=== PATIENT | male | born 1960 | race Caucasian/White ===

== ENCOUNTER 2020-04-13 11:01 | Outpatient (CLI) | payer MEDICARE, MEDICAID, SELFPAY ==
--- NOTE | ~2020-04-13 | XR_ITS ---
EXAMINATION:XR_CERV2-3V_CR, XR lumbar spine 2-3V, XR thoracic spine 3V DATE: 04/13/2020 11:41 INDICATION: Dorsalgia with neck, mid and lower back pain. TECHNIQUE: 1. AP, lateral and odontoid views of the cervical spine were obtained. 2. AP, lateral and lateral swimmers views of the thoracic spine were obtained. 3. AP, lateral and cone-down lateral lumbosacral views of the lumbar spine were obtained. COMPARISON: None FINDINGS: Cervical spine: Alignment is normal. Dens is intact. Vertebral body heights are normal. Disc spaces are normal. No fr acture identified. Mild to moderate cervical facet osteoarthritis. Prevertebral soft tissues are norm al. Thoracic spine: Alignment is normal. Minimal lower thoracic levocurvature with slight right-sided vertebral body heig ht loss at T8 and T9. Remaining vertebral body heights are normal. Multilevel mild disc height loss w ith small endplate osteophytes primarily in the upper to mid thoracic spine. No fracture identified. Paravertebral soft tissues are unremarkable. Heart size is normal. Calcified nodule at the right lung base consistent with old granulomatous disease. Lumbar spine: Mild lumbar levocurvature. Sacralized L5 segment. 17 mm anterolisthesis L4 on L5 with band of lucency projecting across the pars interarticularis consistent with spondylolysis. 5 mm anterolisthesis L3 o n L4. Vertebral body heights are normal. Mild disc height loss at L3-L4 and severe disc height loss a t L4-L5. Moderate to severe lower lumbar facet osteoarthritis. Mild bilateral sacral joints. IMPRESSION: 1. L4 spondylolysis with grade 2 anterolisthesis on the sacralized L5 segment. 2. Mild cervical and thoracic spondylosis and moderate to severe spondylosis in the lower lumbar spin e. Reviewed, dictated and finalized at location B. IMPRESSION: 1. L4 spondylolysis with grade 2 anterolisthesis on the sacralized L5 segment. 2. Mild cervical and thoracic spondylosis and moderate to severe spondylosis in the lower lumbar spine. IMPRESSION: 1. L4 spondylolysis with grade 2 anterolisthesis on the sacralized L5 segment. 2. Mild cervical and thoracic spondylosis and moderate to severe spondylosis in the lower lumbar spine.
[2020-04-13 11:36] LABS: Basophils Absolute Auto 0.1 K/mm3 (0.0-0.1); Basophils Percent Auto 0.6 % (0.2-1.2); Eosinophils Absolute Auto 0.2 K/mm3 (0-0.3); Eosinophils Percent Auto 2.5 % (0-4.4); Hematocrit 47.4 % (42.0-52.0); Hemoglobin 16.2 g/dL (14.0-18.0); Immature Granulocyte Absolute 0.03 K/mm3 (0.00-0.031); Immature Granulocyte Percent A 0.3 % (0-0.5); Lymphocytes Percent Auto 20.1 % (18.3-44.2); Mean Corpuscular HGB Conc 34.2 g/dl (32-36); Mean Corpuscular Hemoglobin 31.5 pg (26-34); Mean Corpuscular Volume 92.2 fl (80-100); Mean Platelet Volume 10.1 fl (7.4-10.4); Monocytes Absolute Auto 0.7 K/mm3 (0.1-0.6); Monocytes Percent Auto 6.9 % (2.6-8.5); Neutrophils Absolute Auto 6.6 K/mm3 (1.3-6.7); Neutrophils Percent Auto 69.6 % (45.5-73.1); Platelet Count Result 219 k/mm3 (150-375); Red Blood Count 5.14 M/mm3 (4.6-6.20); Red Cell Distribution Width 13.6 % (11.5-14.5); White Blood Count 9.5 K/mm3 (4.5-10.0)
[2020-04-13 12:15] LABS: Rheumatoid Factor < 8.6 IU/ML (<12)
[2020-04-13 12:16] LABS: Alanine Aminotransferase 40 U/L (4-50); Albumin Level 4.6 g/dL (3.5-5.1); Alkaline Phosphatase 54 U/L (38-126); Anion Gap 7 mmol/L (8-16); Aspartate Amino Transferase 36 U/L (17-59); Bilirubin,Total 0.8 mg/dL (0.2-1.3); Blood Urea Nitrogen 14 mg/dL (9-20); Calcium 9.7 mg/dL (8.4-10.2); Carbon Dioxide 30 mmol/L (22-30); Chloride 102 mmol/L (98-107); Estimated Glomerular Filt Rate > 60; Glucose 106 mg/dL (75-110); Potassium 4.4 mmol/L (3.4-5.0); Sodium 139 mmol/L (137-145)
[2020-04-13 13:14] LABS: Erythrocyte Sedimentation Rate 2 mm/hr (0-20)
[2020-04-17 12:22] LABS: ANA Cascade Screen Negative (Negative)
== END 2020-04-13 11:02 | disposition home or self-care (01) ==
PROVIDERS: PCP Internal Medicine; Visit Provider Nurse Practitioner
DX: M35.3 Polymyalgia rheumatica (principal); M47.896 Other spondylosis, lumbar region; M47.894 Other spondylosis, thoracic region; M47.892 Other spondylosis, cervical region
CPT/HCPCS: 36415; 72040; 72072; 72100; 80053; 82607; 84443; 85025; 85652; 86038; 86430

== ENCOUNTER 2020-05-03 14:41 | Emergency (ER) | payer MEDICARE, MEDICAID, SELFPAY ==
--- NOTE | ~2020-05-03 | CT_ITS ---
EXAMINATION: CT abdomen pelvis w con DATE: 05/03/2020 16:01 INDICATION: Abdominal pain and nausea for 30 days TECHNIQUE: Computed tomography (CT) of the abdomen and pelvis was performed with 100 cc Omnipaque 350 intravenous contrast. Automated exposure control and iterative reconstruction technique were employe d. Exam dose: 510.18 mGy-cm total exam DLP. COMPARISON: None. FINDINGS: Right lower lobe calcified pulmonary granuloma. Minimal dependent right lower lobe atelecta sis. The lung bases are otherwise clear. Normal heart size. No pericardial or pleural effusion. 6 mm left hepatic cyst. The liver is otherwise unremarkable. The gallbladder is present and appears u nremarkable by CT examination. No gallbladder wall thickening or pericholecystic fluid or stranding. No bile duct or pancreatic duct dilatation is detected. No pancreatic mass lesion or calcification. N ormal splenic size. Normal morphology of the adrenal glands. Approximately 6 mm right renal cyst. No other renal space occupying mass lesion is detected. No urina ry tract calculus or hydroureteronephrosis. There is atherosclerotic calcification of the abdominal aorta and superior mesenteric and iliac arter ies. No abdominal aortic aneurysm. No intraperitoneal or retroperitoneal or pelvic mass lesion or jose antonio nopathy or ascites is evident. There is nonspecific thickening of the wall of the gastric fundus and body. There is an air-fluid lev el of the duodenal bulb and fluid distention of the duodenum. Gastritis and duodenitis are not exclud ed. No bowel obstruction, bowel wall thickening, pneumatosis or intraperitoneal free air is noted otherwi se. Posterior inferior urinary bladder diverticulum. There is mild diffuse thickening of the urinary blad sarahi wall. There is moderate prostate enlargement and minimal calcification. Diffuse osteopenia. Grade 1 anterolisthesis at L4-5 due to degenerative change at the apophyseal joints Bilateral L5 pars interarticularis defects with associated grade 2 anterolisthesis at L5-S1. Severe degenerative disc disease at L5-S1. Bilateral hip osteoarthritis. IMPRESSION: 6 mm left hepatic and 6 mm right renal cysts Nonspecific gastric fundal and body wall thickening and fluid distention and air-fluid level or duode num. Gastritis and duodenitis should be considered. No bowel obstruction Reviewed, dictated and finalized at Location [facility]. Reviewed, dictated and finalized at location B. BRAIST IMPRESSION: 6 mm left hepatic and 6 mm right renal cysts Nonspecific gastric fundal and body wall thickening and fluid distention and ai r-fluid level or duodenum. Gastritis and duodenitis should be considered. No bowel obstruction
[2020-05-03 14:45] VITALS: BP 121/93; PULSE 66; RESP 18; TEMP 36.7; O2SAT 98
--- NOTE | 2020-05-03 15:24 | ED.GENADULT ---
HPI - General Adult General Chief complaint: Nausea/Vomiting/Diarrhea Stated complaint: NAUSEA [id number] Time Seen by Provider: 05/03/20 15:04 Source: RN notes reviewed History of Present Illness HPI narrative: Patient presents to emergency department from home for abdominal pain. Patient states for the past 1 month has been having abdominal pain in the upper abdomen is been associated with nausea. States that symptoms progressively getting worse and are worse when he eats. He denies having any actual emesis or diarrhea he denies any fevers or chills chest pain shortness of breath or any other symptoms Related Data Home Medications Medication Instructions Recorded Confirmed gabapentin 300 mg capsule 300 mg PO TID 04/13/20 04/13/20 Allergies Allergy/AdvReac Type Severity Reaction Status Date / Time No Known Allergies Allergy Unverified 05/03/20 15:21 Review of Systems Review of Systems: Narrative: Gen.: Denies fevers or chills ENT: Denies congestion Respiratory: Denies shortness of breath or cough CV: Denies chest pain or palpitations GI: See HPI denies burning, urgency, frequency or hematuria Musculoskeletal: Denies back pain or muscle pain Neuro: Denies numbness, tingling, weakness or focal weakness Skin: Denies rash Except as documented, all other systems reviewed and negative PMFSH Past Medical History Medical History (Updated 05/03/20 @ 17:13 by Dexter Nicole DO) Hypercholesterolemia Surgical History Surgical History (Updated 12/02/19 @ 08:18 by Heike Solis CMA) H/O hand surgery Retention: 12/2015 Flap: 1983 H/O knee surgery Laproscopic: 12/2008 H/O rotator cuff surgery Right: 07/2015 Left: 2000 History of knee replacement procedure of right knee 09/2006 Family History Family History (Updated 12/02/19 @ 08:27 by Heike Solis CMA) Mother Acute myocardial infarction Father Acute myocardial infarction Diabetes mellitus Sibling Acute myocardial infarction Social History Social History Smoking status: Current every day smoker Tobacco type: cigars Alcohol intake: never Substance use: current Substance use type: marijuana Gender identity (if verbalized by the patient): Male Exam Narrative: Exam Narrative: APPEARANCE: No acute distress, nontoxic, resting in bed HEENT: Normocephalic, atraumatic, OMM RESPIRATORY: No respiratory distress, clear to auscultation bilaterally with no rhonchi wheezing or rales CARDIOVASCULAR: RRR s murmur ABDOMINAL: Soft, nondistended, tender palpation epigastric and right upper quadrant left upper quadrant no tenderness in right lower quadrant left lower quadrant no rebound or guarding MUSCULOSKELETAl: Moves all extremities. No clubbing, cyanosis or edema. NEURO: Awake and alert. Following commands, speech normal, no focal deficits SKIN:: Warm, dry. Normal Color PSYCHIATRIC: Normal affect/mood Course Course Emergency Course: Called and discussed with Dr. Whitten presentation and work-up this time recommends patient start on Protonix and will follow as an outpatient Patient states that they are feeling much better at this time. States abdominal pain has resolved. Repeat abdominal exam shows the patient's abdomen to be soft and nontender. Discussed with patient results of workup and diagnosis. Discussed need for follow-up with primary care physician, reasons to return to the emergency department in proper use of medication. Patient understands and agrees to current treatment plan Vital Signs Vital signs: Vital Signs Temperature 98.1 F 05/03/20 14:45 Pulse Rate 66 05/03/20 14:45 Respiratory Rate 18 05/03/20 14:45 Blood Pressure 121/93 H 05/03/20 14:45 Pulse Oximetry 98 05/03/20 14:45 Temperature 98.1 F 05/03/20 14:45 Pulse Rate 66 05/03/20 14:45 Respiratory Rate 18 05/03/20 14:45 Blood Pressure 121/93 H 05/03/20 14:45 Pulse Oximetry 98 05/03
[2020-05-03 15:26] LABS: Basophils Absolute Auto 0.1 K/mm3 (0.0-0.1); Basophils Percent Auto 0.6 % (0.2-1.2); Eosinophils Absolute Auto 0.2 K/mm3 (0-0.3); Eosinophils Percent Auto 1.7 % (0-4.4); Hematocrit 47.1 % (42.0-52.0); Hemoglobin 16.1 g/dL (14.0-18.0); Immature Granulocyte Absolute 0.04 K/mm3 (0.00-0.031); Immature Granulocyte Percent A 0.4 % (0-0.5); Lymphocytes Absolute Auto 2.46 K/mm3 (0.9-3.2); Lymphocytes Percent Auto 25.2 % (18.3-44.2); Mean Corpuscular HGB Conc 34.2 g/dl (32-36); Mean Corpuscular Hemoglobin 31.8 pg (26-34); Mean Corpuscular Volume 93.1 fl (80-100); Mean Platelet Volume 10.4 fl (7.4-10.4); Monocytes Absolute Auto 0.8 K/mm3 (0.1-0.6); Neutrophils Absolute Auto 6.2 K/mm3 (1.3-6.7); Neutrophils Percent Auto 64.1 % (45.5-73.1); Platelet Count Result 219 k/mm3 (150-375); Red Blood Count 5.06 M/mm3 (4.6-6.20); Red Cell Distribution Width 13.8 % (11.5-14.5); White Blood Count 9.8 K/mm3 (4.5-10.0)
[2020-05-03] MEDS: SODIUM CHLORIDE 0.9% IV 1,000 ML 999 ML IV CONT (15:33)
[2020-05-03] MEDS: ONDANSETRON INJ 4 MG/2 ML VIAL IV PUSH (15:36)
[2020-05-03 15:40] LABS: Alanine Aminotransferase 44 U/L (4-50); Albumin Level 4.7 g/dL (3.5-5.1); Alkaline Phosphatase 56 U/L (38-126); Anion Gap 6 mmol/L (8-16); Aspartate Amino Transferase 36 U/L (17-59); Bilirubin,Total 0.6 mg/dL (0.2-1.3); Blood Urea Nitrogen 16 mg/dL (9-20); Calcium 9.7 mg/dL (8.4-10.2); Carbon Dioxide 31 mmol/L (22-30); Chloride 100 mmol/L (98-107); Estimated CRCL calculation 111 ml/min; Estimated Glomerular Filt Rate > 60; Glucose 86 mg/dL (75-110); Lipase 87 U/L (23-300); Potassium 4.3 mmol/L (3.4-5.0); Sodium 137 mmol/L (137-145)
[2020-05-03 16:03] LABS: Add Urine Microscopic? YES; Appearance Urine Clear (Clear); Bilirubin Urine Negative (Negative); Blood Urine 1+ (Negative); Color Urine Colorless (Yellow); Glucose Urine UA Negative (Negative); Ketones Urine Negative (Negative); Leukocyte Esterase Ur Negative LEU/UL (Negative); Nitrate Urine Negative (Negative); Protein Urine Negative (Negative); RBC Urine 0-2 /hpf (0-2); Urobilinogen Urine Negative mg/dL (<2.0)
[2020-05-03 16:07] LABS: Specific Grav Ur 1.004 (1.001-1.035)
[2020-05-03] MEDS: PANTOPRAZOLE SODIUM IV 40 MG VIAL IV PUSH (17:11)
== END 2020-05-03 18:14 | disposition home or self-care (01) ==
PROVIDERS: Emergency Medicine; Emergency Provider Emergency Medicine; PCP Internal Medicine
DX: K29.70 Gastritis, unspecified, without bleeding (principal); E78.00 Pure hypercholesterolemia, unspecified; Z96.641 Presence of right artificial hip joint; F17.290 Nicotine dependence, other tobacco product, uncomplicated; K76.89 Other specified diseases of liver; N28.1 Cyst of kidney, acquired
CPT/HCPCS: 36415; 74177; 80053; 81001; 83690; 85025; 96365; 96366; 96375; 99284; A9270; C9113; J0131; J2405; J7030; Q9967

== ENCOUNTER 2020-10-27 11:37 | Emergency (ER) | payer MEDICARE, MEDICAID, SELFPAY ==
--- NOTE | ~2020-10-27 | XR_ITS ---
EXAMINATION: XR finger 4th LT min 2V DATE: 10/27/2020 12:13 INDICATION: Left hand fourth digit injury. TECHNIQUE: 4 views of left hand fourth digit were obtained. COMPARISON: None. FINDINGS: There is a nondisplaced stellate fracture of tuft of fourth distal phalanx. There is mild o steoarthritis of fourth metacarpophalangeal joint and distal interphalangeal joint. There is bandage material around the fourth digit. IMPRESSION: 1. Nondisplaced stellate fracture of tuft of fourth distal phalanx. Reviewed, dictated and finalized at location B.
[2020-10-27 11:39] VITALS: BP 129/97; PULSE 87; RESP 20; TEMP 36.8; O2SAT 99
[2020-10-27] MEDS: oxyCODONE/ACETAMINOPHEN (*CRX) 5-325 MG TABLET 1 TABLET (13:55)
[2020-10-27 15:11] VITALS: BP 142/84; PULSE 84; RESP 17; O2SAT 99
--- NOTE | 2020-10-27 21:19 | ED.WOUNDLAC ---
HPI - Wound/Laceration General Chief Complaint: Wound/Laceration Stated Complaint: finger injury Time Seen by Provider: 10/27/20 13:04 Source: patient Mode of arrival: ambulatory Limitations: no limitations History of Present Illness HPI narrative: Patient is a 60 year old male who presents with injury to left ring finger. He reports he was using log splitter and finger became caught between two logs. Patient denies other injuries. Patient denies taking otc medications prior to arrival. Patient reports tetanus is up to date at this time. Related Data Allergies Allergy/AdvReac Type Severity Reaction Status Date / Time No Known Allergies Allergy Unverified 05/10/20 11:08 Review of Systems Review of Systems: Narrative: CONSTITUTIONAL: Denies fever, chills, or sweats. EYES: Denies visual changes, redness, or discharge. ENT: Denies rhinorrhea, congestion, sore throat, or otalgia. CARDIOVASCULAR: Denies chest pain, palpitations, or edema. RESPIRATORY: Denies cough or dyspnea. GASTROINTESTINAL: Denies abdominal pain, nausea, vomiting, or diarrhea. GENITOURINARY: Denies dysuria or hematuria. SKIN: Reports injury to left ring finger MUSCULOSKELETAL: Denies back pain, joint pain, or myalgia. NEUROLOGIC: Denies headache, numbness, dizziness, or weakness. PSYCHIATRIC: Denies anxiety or depression. [facility] Past Medical History Medical History Abnormal CT scan Colon cancer screening Hypercholesterolemia Nausea Surgical History Surgical History H/O hand surgery Retention: 12/2015 Flap: 1983 H/O knee surgery Laproscopic: 12/2008 H/O rotator cuff surgery Right: 07/2015 Left: 2000 History of knee replacement procedure of right knee 09/2006 Family History Family History Mother Acute myocardial infarction Father Acute myocardial infarction Diabetes mellitus Sibling Acute myocardial infarction Social History Social History Smoking status: Current every day smoker Tobacco type: pipe and cigars Second hand tobacco smoke exposure: No Alcohol intake: never Substance use: current Substance use type: marijuana Gender identity (if verbalized by the patient): Male Comments At the time of signature, I have reviewed and agree with nursing past medical, surgical, social, and family history unless otherwise noted. Please see nursing chart for further information. There is no relevant family history pertinent to the presenting complaint. Exam Narrative: Exam Narrative: GENERAL: Well-appearing, well-nourished, and in no acute distress. HEAD: Normocephalic, atraumatic. EYES: EOMI. No redness or drainage. ENT: Mucous membranes pink and moist. CHEST: No respiratory distress. HEART: Regular rate and rhythm. EXTREMITIES: Normal range of motion. SKIN: Avulsion of fingernail of left ring finger, distal sensation intact. NEURO: No focal deficits. Alert and oriented x3. Gait steady. PSYCH: Normal affect. No signs of depression or anxiety. Course Course Emergency Course: Consultation to Dr. Nick who reports that he will see patient in his office at this time for repair. Block of finger completed for pain management. Dressing applied. Patient directed to Dr. Nick's office at this time. Vital Signs Vital signs: Vital Signs Temperature 36.8 C 10/27/20 11:39 Pulse Rate 87 10/27/20 11:39 Respiratory Rate 20 10/27/20 11:39 Blood Pressure 129/97 H 10/27/20 11:39 Pulse Oximetry 99 10/27/20 11:39 Temperature 36.8 C 10/27/20 11:39 Pulse Rate 84 10/27/20 15:11 Respiratory Rate 17 10/27/20 15:11 Blood Pressure 142/84 H 10/27/20 15:11 Pulse Oximetry 99 10/27/20 15:11 Reviewed. Patient has been instructed to follow-up with his PCP regarding his blood pressure.
== END 2020-10-27 15:12 | disposition home or self-care (01) ==
PROVIDERS: Emergency Provider Nurse Practitioner; PCP Internal Medicine
DX: S62.665A Nondisplaced fracture of distal phalanx of left ring finger, initial encounter for closed fracture (principal); S61.305A Unspecified open wound of left ring finger with damage to nail, initial encounter; E78.00 Pure hypercholesterolemia, unspecified; Z96.651 Presence of right artificial knee joint; F17.290 Nicotine dependence, other tobacco product, uncomplicated; R03.0 Elevated blood-pressure reading, without diagnosis of hypertension; W23.1XXA Caught, crushed, jammed, or pinched between stationary objects, initial encounter
CPT/HCPCS: 73140; 99283; A9270

== ENCOUNTER 2021-03-19 07:16 | Outpatient (CLI) | payer MEDICARE, MEDICAID, SELFPAY ==
--- NOTE | ~2021-03-19 | CT_ITS ---
EXAMINATION: CT lung screening EXAM DATE: 03/19/2021 07:34 INDICATION: Z87.891 - Personal history of nicotine dependence. TECHNIQUE: Spiral low dose CT of the chest without contrast. Axial, coronal and sagittal images were reviewed. The dose-length product (DLP) for this examination was 120.87 mGy-cm. The exposure was t ailored according to patient size (auto mA exposure control), and iterative reconstruction (ASIR) was used as additional dose reduction technique. There is no prior study for comparison. FINDINGS: Scattered calcified granulomata. There is 3 mm noncalcified right upper lobe nodule on axi al image 69. Mild emphysema and moderate hyperinflation. Tracheobronchial tree is patent. There is no mediastinal, hilar or axillary lymphadenopathy. There are no pleural or pericardial effusions. There is no pneumothorax. Heart normal in size. There is moderate coronary arterial calcificati on, arterial sclerosis. Upper abdomen is unremarkable. There is mild thoracic spondylosis without o steoblastic or osteolytic lesions identified. There is left-sided rotator cuff repair anchor. IMPRESSION: Lung-RADS category 2, benign appearance or behavior (<1% chance of malignancy); recommend continued LDCT screening in 1 year. > Reviewed, dictated and finalized at location A.
== END 2021-03-19 07:17 | disposition home or self-care (01) ==
PROVIDERS: PCP Internal Medicine; Visit Provider Internal Medicine
DX: Z87.891 Personal history of nicotine dependence (principal)
CPT/HCPCS: 71271

== ENCOUNTER 2021-05-24 10:40 | Outpatient (CLI) | payer MEDICARE, MEDICAID, SELFPAY ==
--- NOTE | 2021-05-24 10:55 | ECG_ITS ---
Measurements Intervals [place] Rate: 57 P: 29 ME: 176 QRS: 60 QRSD: 108 T: 46 QT: 406 QTc: 396 Interpretive Statements SINUS BRADYCARDIA WITH SINUS ARRHYTHMIA BASELINE ARTIFACT- V4 BORDERLINE ECG Electronically Signed On 05-24-2021 16:39:12 DRY KILN OPERATOR HELPER by Chicho Green D.O.
== END 2021-05-24 10:41 | disposition home or self-care (01) ==
LOC: ANHCARD 10:44
PROVIDERS: PCP Internal Medicine; Visit Provider Internal Medicine
DX: Z01.818 Encounter for other preprocedural examination (principal); R94.31 Abnormal electrocardiogram [ECG] [EKG]
CPT/HCPCS: 93005

== ENCOUNTER 2021-09-06 09:53 | Outpatient (CLI) | payer MEDICARE, MEDICAID, SELFPAY ==
--- NOTE | ~2021-09-06 | XR_ITS ---
EXAMINATION: XR hand RT min 3V INDICATION: Cellulitis of the right thumb TECHNIQUE: Three views of the right hand are obtained. COMPARISON: None available FINDINGS: There are amputations of the second through fifth fingers with varying lengths of remnant p roximal phalanges. Surgical changes are noted in the first finger. No fracture is identified. No defi nite cellulitis is seen. There is advanced arthritis at the first interphalangeal joint. IMPRESSION: 1. Postsurgical changes without definite cellulitis identified. Reviewed, dictated and finalized at location B.
== END 2021-09-06 09:54 | disposition home or self-care (01) ==
PROVIDERS: PCP Internal Medicine; Visit Provider Internal Medicine
DX: L03.113 Cellulitis of right upper limb (principal)
CPT/HCPCS: 73130

== ENCOUNTER → 2021-09-27 09:03 | Outpatient (REF) | payer MEDICARE, MEDICAID, SELFPAY | LOC: ANHLAB 09:03 | PROVIDERS: PCP Internal Medicine; Visit Provider Nurse Practitioner | DX: L72.0 Epidermal cyst (principal) | CPT/HCPCS: 88304 ==

== ENCOUNTER 2022-03-15 10:51 | Outpatient (CLI) | payer MEDICARE, MEDICAID, SELFPAY ==
--- NOTE | ~2022-03-15 | XR_ITS ---
EXAMINATION: XR lumbar spine 2-3V DATE: 03/15/2022 11:16 INDICATION: Bilateral lower limb numbness TECHNIQUE: Anteroposterior and lateral views of the lumbar spine, and cone-down lateral view of the l umbosacral junction were obtained. COMPARISON: 04/13/2020 FINDINGS: There is stable grade 2 anterolisthesis of L4 on L5. There is severe loss of intervertebral disc space height at L4-5. There are 5 mm of anterolisthesis of L3 on L4. The vertebral body heights are maintained. There are bilateral L4 pars defects. There is no fracture. IMPRESSION: 1. Stable grade 2 anterolisthesis of L4 on L5 and severe loss of intervertebral disc space height at L4-5. Otherwise mild lumbar spondylosis. Reviewed, dictated and finalized at location A.
== END 2022-03-15 10:52 | disposition home or self-care (01) ==
LOC: ANHIMG 10:57
PROVIDERS: PCP Nurse Practitioner; Visit Provider Nurse Practitioner
DX: M47.896 Other spondylosis, lumbar region (principal); M51.36 Other intervertebral disc degeneration, lumbar region
CPT/HCPCS: 72100

== ENCOUNTER 2022-03-22 13:52 | Outpatient (CLI) | payer MEDICARE, MEDICAID, SELFPAY ==
--- NOTE | ~2022-03-22 | US_ITS ---
US arterial ankle brachial ind INDICATION: Tobacco use TECHNIQUE: Segmental pressures and plethysmographic and Doppler waveforms of the brachial and lower e xtremity arteries were obtained. COMPARISON: None. FINDINGS: Right and left brachial artery pressures of 113 mm Hg and 118 mm Hg, respectively, are concordant (no rmal difference <= 30 mmHg). The right ankle-brachial index (AYDIN) is 1.31 (normal >= 0.9-1.0). The right great toe-brachial index (TBI) is 0.47 (normal >= 0.60). The left AYDIN is 1.34. The left TBI is 0.64. IMPRESSION: 1. Mildly decreased right toe brachial index, consistent with mild peripheral arterial disease. 2: Normal bilateral ankle and left toe brachial indices. Reviewed, dictated and finalized at location A. IMPRESSION: 1. Mildly decreased right toe brachial index, consistent with mild peripheral a rterial disease. 2: Normal bilateral ankle and left toe brachial indices.
== END 2022-03-22 13:53 | disposition home or self-care (01) ==
PROVIDERS: PCP Nurse Practitioner; Visit Provider Nurse Practitioner
DX: Z72.0 Tobacco use (principal); I73.9 Peripheral vascular disease, unspecified
CPT/HCPCS: 93922

== ENCOUNTER 2022-04-01 07:47 | Outpatient (CLI) | payer MEDICARE, MEDICAID, SELFPAY ==
--- NOTE | ~2022-04-01 | MR_ITS ---
EXAMINATION: MR lumbar spine wo con DATE: 04/01/2022 08:22 INDICATION: Low back pain radiating down the legs. TECHNIQUE: Magnetic resonance imaging (MRI) of the lumbar spine was performed without intravenous con trast. Sequences included sagittal T2-weighted FSE, sagittal T2-weighted FS FSE, sagittal T1-weighted FSE, and axial T2-weighted FSE. COMPARISON: Lumbar spine radiographs 03/15/2022, chest CT 03/19/2021 FINDINGS: There is 6 degrees levocurvature of lumbar spine. L5 is a transitional segment. There is 10 mm anterolisthesis of L4 on L5. There are chronic bilateral L4 pars defects. There is 4 mm anterolis thesis of L3 on L4. There is mildly decreased disc height at L3-L4 and severely decreased disc height at L4-L5. The distal spinal cord signal intensity is normal. The conus medullaris is at T12-L1. The following disc levels are specifically discussed: L1-L2: The disc is bulging. There is mild right and moderate left facet joint osteoarthritis. There i s mild bilateral neural foraminal stenosis. There is no central canal stenosis. L2-L3: The disc is bulging. There is severe right and moderate left facet joint osteoarthritis. There is mild bilateral neural foraminal stenosis. There is mild central canal stenosis. L3-L4: The disc is bulging and has an annular fissure. There is severe bilateral facet joint osteoart hritis. There is mild bilateral neural foraminal stenosis. There is mild central canal stenosis. L4-L5: The disc does not extend beyond the endplate margin. There is severe bilateral facet joint ost eoarthritis. There is mild right and moderate left neural foraminal stenosis. There is no central can al stenosis. L5-S1: The disc does not extend beyond the endplate margin. There is no facet joint hypertrophy. Ther e is no neural foraminal stenosis. There is no central canal stenosis. IMPRESSION: 1. Chronic bilateral L4 pars defects with grade 2 anterolisthesis of L4 on L5. 2. Severe lower lumbar spondylosis. Reviewed, dictated and finalized at location B.
== END 2022-04-01 07:48 | disposition home or self-care (01) ==
PROVIDERS: PCP Internal Medicine; Visit Provider Nurse Practitioner
DX: M47.896 Other spondylosis, lumbar region (principal)
CPT/HCPCS: 72148

== ENCOUNTER 2022-05-14 16:12 | Emergency (ER) | payer MEDICARE, MEDICAID, SELFPAY ==
[2022-05-14 16:24] VITALS: BP 169/94; PULSE 70; RESP 18; TEMP 37.3; O2SAT 98
--- NOTE | 2022-05-14 18:49 | ED.GENADULT ---
HPI - General Adult General Chief complaint: Eye Problems Stated complaint: black spot in vision to left eye Time Seen by Provider: 05/14/22 17:49 History of Present Illness HPI narrative: This is a 61-year-old male presenting to ED with a chief complaint of a visual field deficit on the nasal side of his left eye. This started 2 days ago. Is also associated with a throbbing pain in his eye. Patient denies trauma, any foreign body sensation, fever or chills. Patient did have cataract surgery [address] Woods w/ a follow up surgery by Dr. Douglas. Related Data Home Medications Medication Instructions Recorded Confirmed ascorbic acid (vitamin C) 500 mg 500 mg PO DAILY 03/06/21 03/18/22 tablet,extended release Allergies Allergy/AdvReac Type Severity Reaction Status Date / Time No Known Allergies Allergy Verified 03/15/22 10:03 Review of Systems Review of Systems: CONSTITUTIONAL: Denies night sweats. EYES: admits eye pain ENT: Denies rhinorrhea CARDIOVASCULAR: Denies palpitations RESPIRATORY: Denies hemoptysis GASTROINTESTINAL: Denies hematemesis GENITOURINARY: Denies hematuria. SKIN: Denies rash MUSCULOSKELETAL: Denies myalgia. NEUROLOGIC: Denies weakness. PSYCHIATRIC: Denies delusions PMFSH Past Medical History Medical History Abnormal CT scan Colon cancer screening Hypercholesterolemia Nausea Surgical History Surgical History H/O hand surgery Retention: 12/2015 Flap: 1983 H/O knee surgery Laproscopic: 12/2008 H/O rotator cuff surgery Right: 07/2015 Left: 2000 History of knee replacement procedure of right knee 09/2006 Family History Family History Mother Acute myocardial infarction Heart problem Father Acute myocardial infarction Diabetes mellitus Heart problem Sibling Acute myocardial infarction Heart problem Social History Social History Smoking packs per day: 2 Smoking cigarettes per day: 40.0 Smoking status: Former smoker Tobacco type: pipe Second hand tobacco smoke exposure: No Alcohol intake: never Substance use: former Substance use type: marijuana Gender identity (if verbalized by the patient): Male Exam Narrative: APPEARANCE: No apparent distress. Head: atraumatic. EYES: EOMI, visual acuity - R- 20/25 left - 20/50, I0P- R-12 left- 9, No dye uptake on either cornea. NOSE: Atraumatic NECK: Trachea midline RESPIRATORY: No increased rate of breathing CARDIOVASCULAR: RRR, ABDOMINAL: Non-distended MUSCULOSKELETAl: No obvious deformities NEURO: Alert. Moving 4/4 extremities SKIN:: Warm, dry. Normal color PSYCHIATRIC: Normal affect POC ultrasound revealed a retinal detachment on the temporal side of the left eye which is consistent with patient's symptoms. Course Vital Signs Vital signs: Vital Signs Temperature 99.2 F 05/14/22 16:24 Pulse Rate 70 05/14/22 16:24 Respiratory Rate 18 05/14/22 16:24 Blood Pressure 169/94 H 05/14/22 16:24 Pulse Oximetry 98 05/14/22 16:24 Temperature 99.2 F 05/14/22 16:24 Pulse Rate 70 05/14/22 16:24 Respiratory Rate 18 05/14/22 16:24 Blood Pressure 169/94 H 05/14/22 16:24 Pulse Oximetry 98 05/14/22 16:24 Medical Decision Making MDM Narrative Medical decision making narrative: This is a 61-year-old male presenting ED with visual field deficit. 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 patient has decreased visual acuity on that side is likely a macula off detachment. The patient and his called their intelligence manager (Dr. Mccloud) and spoke with his personal binder sorter. She wants him to follow up on . I spoke to the binder sorter but was unable to speak with the
[2022-05-14] MEDS: FLUORESCEIN SOD 1 MG/STRIP EACH EYE (18:58)
[2022-05-14] MEDS: TETRACAINE HCL 0.5% OPHTH SOLN 4 ML BTL 1 DROP (18:58)
== END 2022-05-14 19:43 | disposition home or self-care (01) ==
PROVIDERS: Emergency Provider Emergency Medicine; PCP Internal Medicine
DX: H33.22 Serous retinal detachment, left eye (principal); E78.00 Pure hypercholesterolemia, unspecified; Z96.651 Presence of right artificial knee joint; Z87.891 Personal history of nicotine dependence
CPT/HCPCS: 99283